=== PATIENT | female | born 1950 | race Caucasian/White ===

== ENCOUNTER 2024-09-11 01:26 | Day surgery (SDC) | payer MEDICARE, SELFPAY ==
[2024-09-03 14:43] VITALS: BMI 26.6
[2024-09-11 09:56] VITALS: BP 154/80; PULSE 70; RESP 18; TEMP 36.2; O2SAT 99; BMI 26.9
--- NOTE | 2024-09-11 10:10 | WPDANESEPPF ---
Anes - Initial Pre Proc Eval Procedure: Operation Date: 09/11/24 11:00 Proposed Procedures p Screening Colonoscopy - Keron Garcia MD Date/Time: 09/11/24 10:10 Surgeon: Kreon Garcia MD Pre Op Diagnosis: screening colon Patient Data Age: 74 Gender: F Height: 1.6 m Weight: 68.1 kg Allergies Allergy/AdvReac Type Severity Reaction Status Date / Time amoxicillin AdvReac Hallucinati Verified 09/11/24 10:10 ng ciprofloxacin AdvReac Hallucinati Verified 09/11/24 10:10 ng codeine AdvReac Hallucinati Verified 09/11/24 10:10 ng hydrocodone AdvReac Hallucinati Verified 09/11/24 10:10 ng metformin AdvReac Diarrhea Verified 09/11/24 10:10 oxycodone AdvReac Hallucinati Verified 09/11/24 10:10 ng Penicillins AdvReac hallucation Verified 09/11/24 10:10 s varenicline AdvReac Other Verified 09/11/24 10:10 Home Medications ?Medication ?Instructions ?Recorded ?Confirmed ?Type atorvastatin 20 mg tablet 20 mg PO DAILY 09/03/24 09/11/24 History buspirone 5 mg tablet 5 mg PO BID 09/03/24 09/11/24 History cholecalciferol (vitamin D3) 125 125 mcg PO DAILY 09/03/24 09/11/24 History mcg (5,000 unit) tablet (Vitamin D3) diclofenac sodium 1 % topical gel 2 g topical ONCE 09/03/24 09/03/24 History (Arthritis Pain (diclofenac)) lisinopril 40 mg tablet 40 mg PO DAILY 09/03/24 09/11/24 History omeprazole 40 mg capsule,delayed 40 mg PO DAILY 09/03/24 09/11/24 History release venlafaxine 150 mg 150 mg PO DAILY 09/03/24 09/11/24 History capsule,extended release 24 hr Patient hx anesthesia problems: none Family hx anesthesia problems: none Results Review: All pre-operative results and documents have been reviewed as part of the pre-operative evaluation. [facility] Past Medical History Medical History (Updated 09/11/24 @ 10:11 by Sergio Tanner MD) Smoker CHRISTA (obstructive sleep apnea) Diabetes HTN (hypertension) Social History Social History Smoking packs per day: 1 Smoking cigarettes per day: 20.0 Years smoked: 40 Smoking pack-years: 40.00 Smoking status: Current every day smoker Tobacco type: cigarettes and e-cigarettes/vaping Alcohol intake: never Substance use: never Substance use type: does not use Living arrangements: with family Spiritual care concerns: No Anes - Eval Final PreProcedure Day of Procedure 09/11/24 10:10 Patient weight: overweight Heart: regular rate and rhythm Lungs: clear to auscultation Airway: Mallampati scale class II Neurological: alert and oriented Last oral intake: >/= 8 hours ASA classification: III Emergent: no Anesthetic plan: proceed Anesthesia type and monitoring: general GIVS and standard monitoring Results Review: All pre-operative results and documents have been reviewed as part of the pre-operative evaluation. Informed Consent: The patient's anesthetic plan and its attendant risks and benefits were discussed with the patient/family/POA. Questions were solicited and answers provided to the satisfaction of the patient/family/POA.
[2024-09-11] MEDS: LACTATED RINGERS 1,000 ML 150 ML IV CONT (10:23)
[2024-09-11 10:25] LABS: Glucose Point of Care 131 mg/dl (65-105)
--- NOTE | 2024-09-11 10:31 | PM.HPGS ---
History of Present Illness History of Present Illness Consent: Risks, benefits, and alternatives have been discussed and questions answered. Patient agrees to proceed with procedure. Chief complaint: screening colon Narrative: Elise Estrada is a 74 year old female here for screening colonoscopy, last one 12 years ago Review of Systems Review of Systems: All systems reviewed & are unremarkable except as noted in HPI and below PMFSH Past Medical History Medical History (Updated 09/11/24 @ 10:32 by Keron Garcia MD) Colon cancer screening Smoker CHRISTA (obstructive sleep apnea) Diabetes HTN (hypertension) Social History Social History Smoking packs per day: 1 Smoking cigarettes per day: 20.0 Years smoked: 40 Smoking pack-years: 40.00 Smoking status: Current every day smoker Tobacco type: cigarettes and e-cigarettes/vaping Alcohol intake: never Substance use: never Substance use type: does not use Living arrangements: with family Spiritual care concerns: No Meds Home Medications and Allergies Home Medications ?Medication ?Instructions ?Recorded ?Confirmed ?Type atorvastatin 20 mg tablet 20 mg PO DAILY 09/03/24 09/11/24 History buspirone 5 mg tablet 5 mg PO BID 09/03/24 09/11/24 History cholecalciferol (vitamin D3) 125 125 mcg PO DAILY 09/03/24 09/11/24 History mcg (5,000 unit) tablet (Vitamin D3) diclofenac sodium 1 % topical gel 2 g topical ONCE 09/03/24 09/03/24 History (Arthritis Pain (diclofenac)) lisinopril 40 mg tablet 40 mg PO DAILY 09/03/24 09/11/24 History omeprazole 40 mg capsule,delayed 40 mg PO DAILY 09/03/24 09/11/24 History release venlafaxine 150 mg 150 mg PO DAILY 09/03/24 09/11/24 History capsule,extended release 24 hr semaglutide 3 mg tablet (Rybelsus) 3 mg PO DAILY 09/11/24 09/11/24 History Allergies Allergy/AdvReac Type Severity Reaction Status Date / Time amoxicillin AdvReac Hallucinati Verified 09/11/24 10:10 ng ciprofloxacin AdvReac Hallucinati Verified 09/11/24 10:10 ng codeine AdvReac Hallucinati Verified 09/11/24 10:10 ng hydrocodone AdvReac Hallucinati Verified 09/11/24 10:10 ng metformin AdvReac Diarrhea Verified 09/11/24 10:10 oxycodone AdvReac Hallucinati Verified 09/11/24 10:10 ng Penicillins AdvReac hallucation Verified 09/11/24 10:10 s varenicline AdvReac Other Verified 09/11/24 10:10 Vital Signs Vital Signs - 24 hr 09/11/24 09:56 Temperature 97.1 F L Pulse Rate 70 Respiratory Rate 18 Blood Pressure 154/80 H Pulse Oximetry 99 Oxygen Delivery Room Air Exam Const: General: comfortable and no acute distress HENMT: Face/Nose/Sinus: Normal nares present Eyes: General: appearance normal, both eyes and all related structures Neck: Neck: no JVD Resp: Auscultation: clear to auscultation bilaterally Cardio: Rate: regular rate Rhythm: regular rhythm GI: Inspection: non-distended GI Palp: Yes Soft to palpation Skin: General skin exam: normal color Neuro: Speech: normal speech Extrem: General: normal to inspection Psych: Mental Status: mental status grossly normal Assessment and Plan Assessment and plan (1) Colon cancer screening: Code(s): Z12.11 - Encounter for screening for malignant neoplasm of colon Status: Acute Assessment and Plan: colonoscopy
[2024-09-11 10:50] VITALS: BP 77/42; PULSE 72; RESP 16; O2SAT 99
[2024-09-11 11:00] VITALS: BP 87/50; PULSE 69; RESP 17; O2SAT 98
[2024-09-11 11:10] VITALS: BP 105/67; PULSE 66; RESP 20; O2SAT 98
== END 2024-09-11 11:19 | disposition home or self-care (01) ==
PROVIDERS: PCP Family Medicine; Referring Provider Family Medicine; Visit Provider Internal Medicine Gastroenterology
PROC: 0DJD8ZZ Inspection of Lower Intestinal Tract, Via Natural or Artificial Opening Endoscopic (ICD-10-PCS; CPT 45378; principal; 2024-09-11 11:00)
DX: Z12.11 Encounter for screening for malignant neoplasm of colon (principal); K64.8 Other hemorrhoids; K57.30 Diverticulosis of large intestine without perforation or abscess without bleeding; E11.9 Type 2 diabetes mellitus without complications; I10 Essential (primary) hypertension; G47.33 Obstructive sleep apnea (adult) (pediatric); F17.210 Nicotine dependence, cigarettes, uncomplicated; F17.290 Nicotine dependence, other tobacco product, uncomplicated
CPT/HCPCS: G0121; 82948; J2003; J2704; J7120